=== PATIENT | female | born 1985 | race Caucasian/White ===

== ENCOUNTER 2018-11-13 17:54 | Emergency (ER) | payer SELFPAY ==
[~2018-11-13] VITALS: Ht 167.6 cm; Wt 79.4 kg
[2018-11-13 18:23] VITALS: BP 119/76
--- NOTE | 2018-11-13 19:10 | PHYS DOC ---
Past Medical History Past Medical History: Migraines Past Surgical History: No Surgical History Alcohol Use: None Drug Use: None Adult General Chief Complaint Chief Complaint: HEADACHE HPI HPI Patient is a 33 year old female with a history of migraine headaches and cluster headaches who presents to the ED today complaining of mild generalized headaches that have been going on and off since this afternoon. Patient is also complaining of nausea and vomiting. Patient states this headaches are not unusual for her, she states she's had multiple episodes of similar headaches, she states she has been diagnosed with cluster headaches. She states she has also been diagnosed with migraine headaches. She states today's headache felt like a cluster headache. She states she fortunately got to the ED and her headache nausea and vomiting were completely gone. She is currently symptom-free and drinking water in her bottle. Patient denies any chance she is . Denies this being the worst headache in her life. She also reports episodes of vomiting on and off for the last 6 months. She states this vomiting episodes tend to occur at 2 AM. Denies any abdominal pain. Denies any chance she is . Review of Systems Review of Systems Constitutional: Denies fever or chills [] Eyes: Denies change in visual acuity, redness, or eye pain [] HENT: Denies nasal congestion or sore throat [] Respiratory: Denies cough or shortness of breath [] Cardiovascular: No additional information not addressed in HPI [] GI: Reports nausea and vomiting. Denies abdominal pain, bloody stools or diarrhea [] : Denies dysuria or hematuria [] Musculoskeletal: Denies back pain or joint pain [] Integument: Denies rash or skin lesions [] Neurologic: Reports headaches, denies focal weakness or sensory changes [] All other systems were reviewed and found to be within normal limits, except as documented in this note. Allergies Allergies Allergies Coded Allergies Type Severity Reaction Last Updated Verified No Known Drug Allergies 11/13/18 No Physical Exam Physical Exam Constitutional: Well developed, well nourished, no acute distress, non-toxic appearance. [] HENT: Normocephalic, atraumatic, bilateral external ears normal, oropharynx moist, no oral exudates, nose normal. [] Eyes: PERRLA, EOMI, conjunctiva normal, no discharge. [] Neck: Normal range of motion, no tenderness, supple, no stridor. [] Cardiovascular:Heart rate regular rhythm, no murmur [] Lungs & Thorax: Bilateral breath sounds clear to auscultation [] Abdomen: Bowel sounds normal, soft, no tenderness, no masses, no pulsatile masses. [] Skin: Warm, dry, no erythema, no rash. [] Back: No tenderness, no CVA tenderness. [] Extremities: No tenderness, no cyanosis, no clubbing, ROM intact, no edema. [] Neurologic: Alert and oriented X 3, normal motor function, normal sensory function, no focal deficits noted. Cranial nerves II through XII intact Psychologic: Affect normal, judgement normal, mood normal. [] Current Patient Data Vital Signs Vital Signs Date Time Temp Pulse Resp B/P (MAP) Pulse Ox O2 Delivery O2 Flow Rate FiO2 11/13/18 18:23 98.0 84 18 119/76 (90) 100 Room Air 98.0 EKG EKG [] Radiology/Procedures Radiology/Procedures [] Course & Med Decision Making Course & Med Decision Making Pertinent Labs and Imaging studies reviewed. (See chart for details) This is a 33-year-old female patient presenting to the ED today complaining of a headache. Patient has been diagnosed with cluster headaches and feels this is similar. Also complaining of nausea and vomiting. Patient has no pain or nausea or vomiting right now. Patient was discharged to home with Zofran. Follow-up with PCP and neurologist provided. Dragon Disclaimer Dragon Disclaimer This electronic medical record was generated, in whole or in part, using a voice recognition dictation system. Departure Departure Impression: Primary Impression: Headache Additional Impression: Nausea and vomiting Disposition: 01 HOME, SELF-CARE Condition: STABLE Referrals: NO PCP (PCP) BETHANY ALVAREZ MD follow up in one week Patient Instructions: Headache, FAQs Additional Instructions: You were evaluated in the emergency room for headaches nausea and vomiting. We provided you an urologist, contact the office in follow-up as soon as possible. Please take the prescribed Zofran as needed for nausea or vomiting. You can take [id number] medications as needed for nausea vomiting or you can try the prescribed Imitrex Scripts Ondansetron (ONDANSETRON ODT) 4 Mg Tab.rapdis 1 TAB PO PRN Q6-8HRS, #16 TAB Prov: BRIELLE CHAPIN [employer] 11/13/18 Sumatriptan Succinate (IMITREX) 50 Mg Tablet 1 TAB PO UD, #9 TAB 1 Refill Prov: BRIELLE CHAPIN APRN 11/13/18 Problem Qualifiers Primary Impression: Headache Headache type: unspecified Headache chronicity pattern: unspecified pattern Intractability: not intractable Qualified Codes: R51 - Headache Additional Impression: Nausea and vomiting Vomiting type: unspecified Vomiting Intractability: non-intractable Qualified Codes: R11.2 - Nausea with vomiting, unspecified BRIELLE CHAPIN APRN Nov 13, 2018 19:10
[2018-11-13] MEDS ORDERED: ONDA4TAB12 PO (19:17)
[2018-11-13] MEDS ORDERED: SUMA50TA3 PO (19:17)
== END 2018-11-13 19:28 | disposition home or self-care (01) ==
LOC: ER 17:54
DX: G43.909 Migraine, unspecified, not intractable, without status migrainosus (principal); R11.2 Nausea with vomiting, unspecified
CPT/HCPCS: 99283